=== PATIENT | female | born 1945 | race Caucasian/White ===

== ENCOUNTER 2017-10-30 20:00 | Emergency (ER) | payer MEDICARE ==
[2017-10-30 21:01] LABS: BASOPHILS 0.3 % (0-2); HEMATOCRIT 43.2 % (36.0-48.0); IMMATURE GRANULOCYTES 0.1 % (0-5); LYMPHOCYTES 26.9 % (15-50); MCH 30.5 pg (26.0-34.0); MCHC 34.7 g/dL (31.0-37.0); MEAN PLATELET VOLUME 9.8 fL (7.4-10.4); NEUTROPHILS 65.7 % (40-80); PLATELET COUNT 210 10x3/uL (130-400); RBC 4.91 10x6/uL (4.00-5.40); RDW 13.9 % (11.5-14.5)
[2017-10-30 21:44] LABS: ANION GAP 15.4 mmol/L (8-16); BILIRUBIN - TOTAL 0.53 mg/dL (0.2-1.3); CALCIUM 9.3 mg/dL (8.5-10.1); CARBON DIOXIDE 25.1 mmol/L (21.0-32.0); POTASSIUM - SERUM 3.5 mmol/L (3.5-5.1); PROTEIN - SERUM 7.8 g/dL (6.4-8.2)
== END 2017-10-30 22:35 | disposition home or self-care (01) ==
LOC: D.ER 20:00
PROVIDERS: Emergency Medicine
DX: K22.4 Dyskinesia of esophagus (principal); R32 Unspecified urinary incontinence; E03.9 Hypothyroidism, unspecified